=== PATIENT | male | born 1945 | race African-American/Black ===

== ENCOUNTER 2017-03-30 17:23 | Inpatient (IN) | payer OTHER ==
[~2017-03-30] VITALS: Ht 182.9 cm; Wt 99.2 kg
[~2017-03-30 17:23] MED LIST: ASPI81TA33 PO; CHOLESTEROL MED; PROT10TA PO; htn med
[2017-03-30] MEDS ORDERED: ACETAMINOPHEN 325 MG TABLET PO ONE (17:45)
[2017-03-30 18:58] LABS: HEMATOCRIT 39.2 % (41-53); HEMOGLOBIN 13.3 g/dL (13.5-17.5); MEAN CORPUSCULAR HEMOGLOBIN 28.5 pg (26.0-34.0); MEAN CORPUSCULAR VOLUME 84 fL (80-100); PLATELET COUNT (AUTO) 198 K/uL (150-450); RED BLOOD CELL COUNT(AUTO) 4.68 MIL/uL (4.50-5.90); RED CELL DISTRIBUTION WIDTH 14.7 % (11.5-14.5)
[2017-03-30 19:20] LABS: ANION GAP 8 mmol/L (8-16); CARBON DIOXIDE 27 mmol/L (22-29); CHLORIDE 101 mmol/L (98-107); CREATININE 1.56 mg/dL (0.60-1.30); GLOMERULAR FILTR. RATE CALC 53 mL/min (>60); GLUCOSE,RANDOM 138 mg/dL (70-110); SODIUM SERUM 136 mmol/L (136-145); UREA NITROGEN, BLOOD 19 mg/dL (7-18)
[2017-03-30] MEDS ORDERED: SODIUM CHLORIDE 0.9% 1,000 ML IV ONE ×4 (19:30→23:45)
[2017-03-30 19:40] LABS: B-TYPE NATRIURETIC PEPTIDE 527 pg/mL (0-100)
[2017-03-30 19:44] LABS: INFLUENZA TYPE A NEGATIVE FOR TYPE A (NEGATIVE); INFLUENZA TYPE B NEGATIVE FOR TYPE B (NEGATIVE)
[2017-03-30 19:44] LABS: ALANINE AMINOTRANSFERASE 39 U/L (12-78); ALBUMIN 3.5 g/dL (3.4-5.0); ALKALINE PHOSPHATASE 69 U/L (46-116); ASPARTATE AMINOTRANSFERASE 34 U/L (15-37); BILIRUBIN,TOTAL 0.8 mg/dL (0.1-1.0); CREATINE KINASE MB < 0.5 ng/mL (0-5); CREATINE KINASE, TOTAL 113 U/L (39-308)
[2017-03-30 19:50] LABS: APPEARANCE,URINE CLOUDY (CLEAR); BILIRUBIN,URINE NEGATIVE (NEGATIVE); GLUCOSE, URINE (UA) NEGATIVE (NEGATIVE); KETONES,URINE NEGATIVE (NEGATIVE); LEUKOCYTE ESTERASE ,URINE NEGATIVE (NEGATIVE); NITRATE,URINE NEGATIVE (NEGATIVE); OCCULT BLOOD,URINE TRACE (NEGATIVE); PROTEIN,URINE TRACE (NEGATIVE); UROBILINOGEN,URINE 0.2 mg/dL (<=1.0)
[2017-03-30 20:10] LABS: SQUAMOUS EPITHELIAL CELL,UR Moderate /LPF (None Seen)
[2017-03-30 20:12] LABS: TRANSITIONAL EPI CELLS,URINE Few /LPF (None Seen)
[2017-03-30 20:13] LABS: BACTERIA,URINE Moderate /HPF (None Seen)
[2017-03-30 20:17] LABS: RENAL EPITHELIAL CELLS,URINE Few /LPF (None Seen)
[2017-03-30 20:18] LABS: HYALINE CASTS, URINE 0-2 /LPF (None Seen)
[2017-03-30 20:19] LABS: RBC,URINE 0-2 /HPF (0-2)
[2017-03-30] MEDS ORDERED: BARIUM SULFATE 0.1% SUSPENSION 450 ML BOTTLE PO ONE (20:30)
[2017-03-30 20:35] LABS: BAND NEUTROPHILS % (MANUAL) 21 % (1-5); LYMPHOCYTES % (MANUAL) 5 % (22-44); MONOCYTES % (MANUAL) 10 % (2-9); SEGMENTED NEUTROPHILS % 64 % (40-70)
[2017-03-30 20:38] LABS: LACTIC ACID 2.8 mmol/L (0.4-2.0)
[2017-03-30] MEDS ORDERED: ONDANSETRON HCL 4 MG/2 ML VIAL IVP PRN (23:45)
[2017-03-30] MEDS ORDERED: HYDROmorphone 2 MG/ML SYRINGE IVP PRN (23:45)
[2017-03-30] MEDS ORDERED: ACETAMINOPHEN 325 MG TABLET PO PRN (23:45)
[2017-03-30] MEDS: PIPERACILLIN/TAZO 3.375 GM/D5W 50 ML IV SCH (23:57)
[2017-03-31] VITALS (7 sets, daily range): BP systolic 104–138; BP diastolic 41–80
[2017-03-31] MEDS ORDERED: HydrALAZINE HCL 20 MG/ML VIAL IVP PRN (00:45)
[2017-03-31] MEDS ORDERED: PNEUMOCOCCAL VACCINE POLYVALENT 0.5 ML VIAL [PPSV23] IM ONE (01:15)
[2017-03-31] MEDS: AZITHROMYCIN 500 MG/NS 250 ML IV SCH ×2 (01:32→16:51)
[2017-03-31] MEDS: PIPERACILLIN/TAZO 3.375 GM/D5W 50 ML IV SCH ×2 (05:09→13:06)
[2017-03-31 07:34] LABS: HEMATOCRIT 35.4 % (41-53); HEMOGLOBIN 11.9 g/dL (13.5-17.5); MEAN CORPUSCULAR HEMOGLOBIN 28.7 pg (26.0-34.0); MEAN CORPUSCULAR HGB CONC 33.6 G/dL (31.0-37.0); MEAN CORPUSCULAR VOLUME 85 fL (80-100); PLATELET COUNT (AUTO) 161 K/uL (150-450); RED BLOOD CELL COUNT(AUTO) 4.15 MIL/uL (4.50-5.90); RED CELL DISTRIBUTION WIDTH 14.3 % (11.5-14.5)
[2017-03-31 07:54] LABS: ANION GAP 8 mmol/L (8-16); CALCIUM, TOTAL 8.3 mg/dL (8.8-10.5); CARBON DIOXIDE 25 mmol/L (22-29); CHLORIDE 103 mmol/L (98-107); CREATININE 1.24 mg/dL (0.60-1.30); GLOMERULAR FILTR. RATE CALC > 60 mL/min (>60); GLUCOSE,RANDOM 94 mg/dL (70-110); POTASSIUM 3.5 mmol/L (3.5-5.1); SODIUM SERUM 136 mmol/L (136-145); UREA NITROGEN, BLOOD 18 mg/dL (7-18)
[2017-03-31 08:23] LABS: ALANINE AMINOTRANSFERASE 31 U/L (12-78); ALKALINE PHOSPHATASE 67 U/L (46-116); ASPARTATE AMINOTRANSFERASE 23 U/L (15-37); BILIRUBIN,TOTAL 0.9 mg/dL (0.1-1.0); CREATINE KINASE, TOTAL 108 U/L (39-308)
[2017-03-31 08:36] LABS: CREATINE KINASE MB < 0.5 ng/mL (0-5)
[2017-03-31 09:38] LABS: BAND NEUTROPHILS % (MANUAL) 20 % (1-5); BASOPHILS % (MANUAL) 1 % (0-2); LYMPHOCYTES % (MANUAL) 7 % (22-44); MONOCYTES % (MANUAL) 10 % (2-9); SEGMENTED NEUTROPHILS % 62 % (40-70)
[2017-03-31 10:22] LABS: ERYTHROCYTE SEDIMENTATION RATE 24 MM/HR (0-15)
[2017-03-31] MEDS ORDERED: IOVERSOL 350 MG/ML 100 ML VIAL ONE (13:31)
[2017-03-31] MEDS ORDERED: IOVERSOL 350 MG/ML 150 ML VIAL ONE (13:32)
[2017-03-31] MEDS ORDERED: ACETAMINOPHEN 325 MG TABLET PO PRN (13:45)
[2017-03-31] MEDS ORDERED: VANCOMYCIN HCL 1.5 GM in DEXTROSE 5%-WATER 250 ML IV ONE (16:00)
[2017-03-31] MEDS ORDERED: SODIUM CHLORIDE 0.9% 500 ML IV ONE (23:29)
[2017-04-01] MEDS: AZITHROMYCIN 500 MG/NS 250 ML IV SCH (01:27)
[2017-04-01 05:36] VITALS: BP 137/59
[2017-04-01 06:21] LABS: ANION GAP 8 mmol/L (8-16); CALCIUM, TOTAL 8.4 mg/dL (8.8-10.5); CARBON DIOXIDE 27 mmol/L (22-29); CHLORIDE 102 mmol/L (98-107); CREATININE 1.24 mg/dL (0.60-1.30); GLOMERULAR FILTR. RATE CALC > 60 mL/min (>60); GLUCOSE,RANDOM 101 mg/dL (70-110); POTASSIUM 3.3 mmol/L (3.5-5.1); SODIUM SERUM 137 mmol/L (136-145); UREA NITROGEN, BLOOD 12 mg/dL (7-18)
[2017-04-01 07:59] VITALS: BP 140/75
[2017-04-01] MEDS ORDERED: VANCOMYCIN HCL 1 GM/D5% WATER 200 ML IV SCH (08:00)
[2017-04-01 08:06] LABS: HIV 1-2 SCREEN 4TH GEN W/RFLX Non Reactive (Non Reactive)
[2017-04-01 11:46] VITALS: BP 142/79
== END 2017-04-01 12:00 | disposition left against medical advice (07) | DRG 872 ==
LOC: EMS 17:26 → 6N 23:30
PROVIDERS: ADMIT Hospitalist; ATTEND Hospitalist
DX: A41.9 Sepsis, unspecified organism (principal); K56.609 Unspecified intestinal obstruction, unspecified as to partial versus complete obstruction; F20.9 Schizophrenia, unspecified; J43.2 Centrilobular emphysema; B34.9 Viral infection, unspecified; N18.2 Chronic kidney disease, stage 2 (mild); R65.10 Systemic inflammatory response syndrome (SIRS) of non-infectious origin without acute organ dysfunction; H91.93 Unspecified hearing loss, bilateral; I12.9 Hypertensive chronic kidney disease with stage 1 through stage 4 chronic kidney disease, or unspecified chronic kidney disease; I25.10 Atherosclerotic heart disease of native coronary artery without angina pectoris; K44.9 Diaphragmatic hernia without obstruction or gangrene; M16.10 Unilateral primary osteoarthritis, unspecified hip; M43.16 Spondylolisthesis, lumbar region; M46.90 Unspecified inflammatory spondylopathy, site unspecified; N28.1 Cyst of kidney, acquired; R32 Unspecified urinary incontinence; Z83.3 Family history of diabetes mellitus; Z87.891 Personal history of nicotine dependence; Z95.5 Presence of coronary angioplasty implant and graft; Z28.21 Immunization not carried out because of patient refusal
CPT/HCPCS: 70487; 70491; 74010; 74176; 83605; 85651; 86140; 86171; 87040; 87086; 87147; 87389; 87804; 96360; 96361; 99285; J0456; J2543; J3370; J7030; J7040; J7060

== ENCOUNTER 2019-05-25 17:54 | Emergency (ER) | payer OTHER ==
[~2019-05-25] VITALS: Ht 188 cm; Wt 90.9 kg
[~2019-05-25 17:54] MED LIST changes: -ASPI81TA33 PO; +ASPI81TA87 PO
[2019-05-25 20:30] VITALS: BP 153/105
== END 2019-05-25 23:40 | disposition left against medical advice (07) ==
LOC: EMS 17:57
DX: M79.605 Pain in left leg (principal); M79.604 Pain in right leg; Z53.21 Procedure and treatment not carried out due to patient leaving prior to being seen by health care provider

== ENCOUNTER 2019-05-31 19:41 | Emergency (ER) | payer OTHER ==
[~2019-05-31] VITALS: Ht 185.4 cm; Wt 99.1 kg
[2019-06-01 03:25] VITALS: BP 124/66
== END 2019-06-01 03:31 | disposition home or self-care (01) ==
LOC: EMS 19:43
DX: M13.852 Other specified arthritis, left hip (principal); M13.851 Other specified arthritis, right hip; M51.36 Other intervertebral disc degeneration, lumbar region; I10 Essential (primary) hypertension; F20.9 Schizophrenia, unspecified; G89.29 Other chronic pain; Z87.891 Personal history of nicotine dependence; Z95.0 Presence of cardiac pacemaker; Z79.82 Long term (current) use of aspirin
CPT/HCPCS: 72131; 73521